=== PATIENT | female | born 1965 | race Caucasian/White ===

== ENCOUNTER 2023-10-11 12:59 | Observation (INO) | payer BC ==
--- NOTE | 2023-10-11 13:09 | ED ---
Upper Extremity HPI - General Source: patient, RN notes reviewed Mode of arrival: ambulatory Limitations: no limitations <Mirela Rondon - Last Filed: 10/11/23 13:08> <Willem Starr - Last Filed: 10/11/23 15:06> - General Stated Complaint: L Finger Infection Time Seen by Provider: 10/11/23 13:08 - History of Present Illness Initial Comments: Quick note: 57-year-old female presenting to the ER with a chief complaint of left second digit infection. Patient sent by urgent care. Patient reports she was scratched by a cat yesterday. Woke up this morning with an extremely tender and swollen digit. Reports paresthesias to finger. Denies any fevers. (Mirela Rondon) This is a 57-year-old female who presents to the emergency department complaining of left index finger infection. Patient states she was bit or scratched by her cat yesterday and the finger continues to get more red painful and swollen. Patient went to an urgent care and they sent her to the emergency department. Patient has any fever chills but she notes that the swelling of the finger is now moved into the palm and of the back of the hand where it was in earlier today. Patient denies any other problems at this time (Willem Starr) - Related Data Allergies Allergy/AdvReac Type Severity Reaction Status Date / Time codeine Allergy Unknown Verified 10/11/23 13:30 Review of Systems ROS Other: All systems not noted in ROS Statement are negative. <Mirela Rondon - Last Filed: 10/11/23 13:08> ROS Other: All systems not noted in ROS Statement are negative. <Willem Starr - Last Filed: 10/11/23 15:06> ROS Statement: Those systems with pertinent positive or pertinent negative responses have been documented in the HPI. General Exam <Mirela Rondon - Last Filed: 10/11/23 13:08> <Willem Starr - Last Filed: 10/11/23 15:06> - General Exam Comments Initial Comments: Visual Physical Exam Vital signs reviewed General: Well-appearing, nontoxic, no acute distress. Head: Normocephalic, atraumatic Eyes: PERRLA, EOMI ENT: Airway patent Chest: Nonlabored breathing Skin: No visual rash, normal skin tone Neuro: Alert and oriented 3 Musculoskeletal: Erythematous and edematous left second finger. (Mirela Rondon) GENERAL Patient is well-developed and well-nourished. Patient is in mild distress. EYES Patient's pupils are equal and round. Extraocular motion is intact SKIN Unremarkable NEURO The patient is alert and oriented -3 PYSCH Patient has normal interpersonal interactions. MUSCULOSKELETAL Index finger on the left is swollen red painful with a opening on the palmar surface above the proximal phalanx. Patient's erythema spreads to the back of the hand and down the palm. (Willem Starr) Course Vital Signs 10/11/23 13:27 Temperature 97.4 F L Pulse Rate 91 Respiratory 18 Rate Blood Pressure 139/95 O2 Sat by Pulse 98 Oximetry Medical Decision Making <Mirela Rondon - Last Filed: 10/11/23 13:08> <Willem Starr - Last Filed: 10/11/23 15:06> - Medical Decision Making I performed the quick note portion of this chart. Electronically signed by Mirela Rondon PA-C (Mirela Rondon) Was pt. sent in by a medical professional or institution (ABHIJIT Carballo, WRINGER MACHINE OPERATOR, urgent care, hospital, or alf...) When possible be specific @ -Patient was sent in from the urgent care Did you speak to anyone other than the patient for history (EMS, parent, family, police, friend...)? What history was obtained from this source @ -No Did you review nursing and triage notes (agree or disagree)? Why? @ -I reviewed and agree with nursing and triage notes Were old charts reviewed (outside hosp., previous admission, EMS record, old EKG, old radiological studies, urgent care reports/EKG's, alf records)? Report findings @ -No old charts were reviewed Differential Diagnosis (chest pain, altered mental status, abdominal pain women, abdominal pain men, vaginal bleeding, weakness, fever, dyspnea, syncope, headache, dizziness, GI bleed, back pain, seizure, CVA, palpatations, mental health, musculoskeletal)? @ -Infected finger, foreign body finger, abscess, this is not an all-inclusive list EKG interpreted by me (3pts min.). @ -As above X-rays interpreted by me (1pt min.). @ -X-ray does not show any fracture or foreign body CT interpreted by me (1pt min.). @ -None done U/S interpreted by me (1pt. min.). @ -None done What testing was considered but not performed or refused? (CT, X-rays, U/S, labs)? Why? @ -None What meds were considered but not given or refused? Why? @ -None Did you discuss the management of the patient with other professionals (professionals i.e. , PA, WRINGER MACHINE OPERATOR, lab, RT, psych nurse, professor of social work, window treatment installer, teacher, safety instruction police officer, director case)? Give summary @ -I spoke with Mr. [facility] hospitalist they want to admit the patient admitted the patient wrote admitting orders Was smoking cessation discussed for >3mins.? @ -No Was critical care preformed (if so, how long)? @ -No Were there social determinants of health that impacted care today? How? (Homelessness, low income, unemployed, alcoholism, drug addiction, transportation, low edu. Level, literacy, decrease access to med. care, shelter, rehab)? @ -No Was there de-escalation of care discussed even if they declined (Discuss DNR or withdrawal of care, Hospice)? DNR status @ -No What co-morbidities impacted this encounter? (DM, HTN, Smoking, COPD, CAD, Cancer, CVA, ARF, Chemo, Hep., AIDS, mental health diagnosis, sleep apnea, morbid obesity)? @ -None Was patient admitted / discharged? Hospital course, mention meds given and route, prescriptions, significant lab abnormalities, going to OR and other pertinent info. @ -Patient was found [facility] Undiagnosed new problem with uncertain prognosis? @ -No Drug Therapy requiring intensive monitoring for toxicity (Heparin, Nitro, Insulin, Cardizem)? @ -No Were any procedures done? @ -No Diagnosis/symptom? @ -Cat bite infection Acute, or Chronic, or Acute on Chronic? @ -Acute Uncomplicated (without systemic symptoms) or Complicated (systemic symptoms)? @ -Complicated Side effects of treatment? @ -No Exacerbation, Progression, or Severe Exacerbation? @ -No Poses a threat to life or bodily function? How? (Chest pain, USA, VT, pneumonia, PE, COPD, DKA, ARF, appy, cholecystitis, CVA, Diverticulitis, Homicidal, Suicidal, threat to staff... and all critical care pts) @ -Yes this could spread and cause severe infection of the hand with dysfunction and/or eventually sepsis (Willem Starr) Disposition <Mirela Rondon - Last Filed: 10/11/23 13:08> Time of Disposition: 15:06 <Willem Starr - Last Filed: 10/11/23 15:06> Clinical Impression: Cat bite of finger, Cellulitis, finger Disposition: ADMITTED IP TO THIS HOSP Referrals: Romain Guadarrama MD [Primary Care Provider] - 1-2 days
--- NOTE | 2023-10-11 14:29 | XR ---
EXAMINATION TYPE: XR finger LT DATE OF EXAM: 10/11/2023 2:13 PM CLINICAL INDICATION:Female, 57 years old with history of cat bite; H COMPARISON: None TECHNIQUE: Frontal, lateral and oblique views of the left index finger were obtained. FINDINGS: Normal alignment of the visualized joints. No acute osseous pathology is identified. Minim al soft tissue edema. No retained foreign bodies identified. IMPRESSION: 1. No acute osseous pathology or radiopaque foreign body. 2. Mild soft tissue edema along the medial finger.
[2023-10-11] MEDS ORDERED: HYDROmorphone 0.5 MG/0.5 ML SYRINGE IVP PRN (15:11)
[2023-10-11] MEDS: HYDROmorphone 0.5 MG/0.5 ML SYRINGE IVP STA (15:42)
[2023-10-11] MEDS: KETOROLAC 15 MG/ML 1 ML VIAL IVP STA (15:44)
[2023-10-11 15:50] LABS: Basophils % (A) 0 %; Eosinophils # (A) 0.2 k/uL (0-0.7); Eosinophils % (A) 2 %; HCT 46.4 % (34.0-46.0); HGB 15.6 gm/dL (11.4-16.0); Lymphocytes # (A) 1.5 k/uL (1.0-4.8); Lymphocytes % (A) 13 %; MCH 34.2 pg (25.0-35.0); MCHC 33.5 g/dL (31.0-37.0); MCV 101.9 fL (80.0-100.0); Mean Platelet Volume 9.6; Monocytes # (A) 0.5 k/uL (0-1.0); Monocytes % (A) 5 %; Neutrophils # (A) 9.3 k/uL (1.3-7.7); Neutrophils % (A) 80 %; Platelet Count 138 k/uL (150-450); RBC 4.55 m/uL (3.80-5.40); RDW 11.7 % (11.5-15.5); WBC 11.7 k/uL (3.8-10.6)
[2023-10-11] MEDS: SODIUM CHLORIDE 0.9% 1,000 ML IV ONE (16:20)
[2023-10-11 16:21] LABS: ALT 23 U/L (4-34); AST 47 U/L (14-36); African American GFR (CKD) >90 (>60 ml/min/1.73 sqM); Albumin 4.1 g/dL (3.5-5.0); Alkaline Phosphatase 72 U/L (38-126); Anion Gap 8 mmol/L; Blood Urea Nitrogen 18 mg/dL (7-17); Calcium 9.9 mg/dL (8.4-10.2); Carbon Dioxide 20 mmol/L (22-30); Chloride 111 mmol/L (98-107); Glucose 93 mg/dL (74-99); Non-African American GFR(CKD) >90 (>60 ml/min/1.73 sqM); Potassium 4.3 mmol/L (3.5-5.1); Sodium 139 mmol/L (137-145); Total Bilirubin 0.7 mg/dL (0.2-1.3); Total Protein 7.2 g/dL (6.3-8.2)
[2023-10-11] MEDS: AMPICILLIN-SULBACTAM 3 GM in SODIUM CHLORIDE 0.9% 100 ML IVPB STA (16:32)
[2023-10-11] MEDS ORDERED: ONDANSETRON 4 MG/2 ML VIAL IVP PRN (17:48)
[2023-10-11] MEDS ORDERED: MELATONIN 3 MG TABLET PO PRN (17:48)
[2023-10-11] MEDS ORDERED: ACETAMINOPHEN TAB 325 MG TAB PO PRN (17:48)
[2023-10-11] MEDS ORDERED: NALOXONE 0.4 MG/ML 1 ML VIAL IV PRN (17:48)
[2023-10-11] MEDS: KETOROLAC 15 MG/ML 1 ML VIAL IVP SCH (18:10)
--- NOTE | 2023-10-11 18:28 | P.HPIM ---
History of Present Illness H&P Date: 10/11/23 57 year old right handed F with PMH of dyslipidemia presents to the ED after a cat bite that started at 10:45AM yesterday. Since then she reports increased pain, redness and swelling in her left second digit that is extending into the palm. She denies any fever, chills, nausea, vomiting, fever, chills, changes in urination or bowel habits. In the ED she underwent extensive evaluation. BP 139/95 HR 91 T97.4F RR 18 98% on RA. CBC WBC 11.7, Hct 46.4, MCV 101.9, Plt 138. CMP Cl 111, bicarb 20, BUN 18, AST 47. Finger XR showed soft tissue swelling. She is admitted for treatment of left hand cellulitis. General: non toxic, no distress, appears at stated age Derm: warm, dry Head: atraumatic, normocephalic, symmetric Eyes: EOMI, no lid lag, anicteric sclera Mouth: no lip lesion, mucus membranes moist Cardiovascular: S1S2 reg, no murmur Lungs: CTA bilateral, no rhonchi, no rales , no accessory muscle use Ext: no gross muscle atrophy, no edema, no contractures, L 2nd digit puncture wound without drainage and fluctuance with erythema extending into the palm, weakened L hand nib assembler due to pain, 2+ radial pulse L hand Neuro: no focal neuro deficits Psych: Alert, oriented, appropriate affect Based on my assessment of this patient, this patient meets a high complexity level of care. Patient has an acute diagnosis of celulitis of the left hand that poses a threat to life or bodily function. Sepsis due to left hand cellulitis: Start Unasyn 3g IV Q6H. Tylenol PRN for fever or pain. Toradol 15 mg IV Q6H + Dilaudid 0.5 mg IV TID PRN for pain. Obtain BCx. NS at 100 cc/hr. Left hand cat bite: [facility] Sx consult. Macrocytosis: Drinks couple glasses of wine weekly. Transaminitis: Likely due to EtOH. Chronic conditions: Dyslipidemia CODE STATUS: FULL CODE DVT Prophylaxis: Lovenox GI Prophylaxis: Designated medical POA if patient is not able to make medical decisions for themselves: I have reviewed the following design sales consultant notes: ED I have reviewed the results of the following tests: As above I have ordered the following tests: As above I have discussed the care of this patient with the following independent historian: I have independently interpreted the following test below: L finger XR. I have discussed the management of this patient with the following physician: Dr. Starr Past Medical History Past Medical History: Hyperlipidemia History of Any Multi-Drug Resistant Organisms: None Reported Past Surgical History: Cardiac Ablation, Orthopedic Surgery Additional Past Surgical History / Comment(s): parathyroid, left knee scope Past Anesthesia/Blood Transfusion Reactions: No Reported Reaction Additional Past Anesthesia/Blood Transfusion Reaction / Comment(s): no hx of blood transfusion Past Psychological History: No Psychological Hx Reported Smoking Status: Light tobacco smoker Past Alcohol Use History: Occasional Past Drug Use History: None Reported Medications and Allergies Home Medications Medication Instructions Recorded Confirmed Type Albuterol Inhaler [Ventolin Hfa 2 puff INHALATION RT-Q6H PRN 10/11/23 10/11/23 History Inhaler] Atorvastatin [Lipitor] 20 mg PO HS 10/11/23 10/11/23 History Ergocalciferol (Vitamin D2) 1,250 mcg PO MO 10/11/23 10/11/23 History [Drisdol (50,000 Iu)] Ezetimibe [Zetia] 10 mg PO HS 10/11/23 10/11/23 History Magnesium 250 mg PO DAILY 10/11/23 10/11/23 History Multivitamins, Thera [Multivitamin 1 tab PO DAILY 10/11/23 10/11/23 History (formulary)] Progesterone, Micronized 200 mg PO HS 10/11/23 10/11/23 History [Prometrium] Tirzepatide [Zepbound] 5 mg SQ TH 10/11/23 10/11/23 History Allergies Allergy/AdvReac Type Severity Reaction Status Date / Time codeine AdvReac numbness Verified 10/11/23 15:53 Physical Exam Vitals: Vital Signs Temp Pulse Resp BP Pulse Ox 10/11/23 16:51 83 16 128/79 97 10/11/23 13:27 97.4 F L 91 18 139/95 98 Intake and Output 10/11/23 10/11/23 10/11/23 06:59 14:59 22:59 Other: # Voids 1 Weight 108.862 kg 108.862 kg Results CBC & Chem 7: 10/11/23 15:46 10/11/23 15:46 Labs: Abnormal Lab Results - Last 24 Hours (Table) 10/11/23 10/11/23 Range/Units 15:46 15:46 WBC 11.7 H (3.8-10.6) k/uL Hct 46.4 H (34.0-46.0) % MCV 101.9 H (80.0-100.0) fL Plt Count 138 L (150-450) k/uL Neutrophils # 9.3 H (1.3-7.7) k/uL Chloride 111 H (98-107) mmol/L Carbon Dioxide 20 L (22-30) mmol/L BUN 18 H (7-17) mg/dL AST 47 H (14-36) U/L Thrombosis Risk Factor Assmnt - Choose All That Apply Each Factor Represents 1 point: Age 41-60 years, Obesity (BMI >25) Other Risk Factors: No Other congenital or acquired thrombophilia - If yes, enter type in comment: No Thrombosis Risk Factor Assessment Total Risk Factor Score: 2 Thrombosis Risk Factor Assessment Level: Low Risk
[2023-10-11] MEDS: AMPICILLIN-SULBACTAM 3 GM in SODIUM CHLORIDE 0.9% 100 ML IVPB SCH (20:04)
[2023-10-11] MEDS: EZETIMIBE 10 MG TAB PO SCH (20:05)
[2023-10-11] MEDS: ATORVASTATIN 20 MG TAB PO SCH (20:05)
[2023-10-11] MEDS: HYDROmorphone 0.5 MG/0.5 ML SYRINGE IVP PRN (20:05)
[2023-10-12] MEDS: ENOXAPARIN 40 MG/0.4 ML SYRINGE SQ SCH (07:54)
[2023-10-12 08:36] LABS: Basophils # (A) 0.03 X 10*3/uL (0.00-0.10); Basophils % (A) 0.4 %; Eosinophils # (A) 0.13 X 10*3/uL (0.04-0.35); Eosinophils % (A) 1.5 %; HCT 40.2 % (37.2-46.3); Lymphocytes # (A) 2.29 X 10*3/uL (0.90-5.00); Lymphocytes % (A) 27.2 %; MCH 35.1 pg (27.0-32.0); MCHC 34.8 g/dL (32.0-37.0); MCV 100.8 FL (80.0-97.0); Mean Platelet Volume 11.6 FL (9.5-12.2); Monocytes % (A) 7.1 %; NRBC Per 100 WBC 0 X 10*3/uL (0.00-0.01); Neutrophils # (A) 5.36 X 10*3/uL (1.80-7.70); Neutrophils % (A) 63.6 %; Platelet Count 119 X 10*3/uL (140-440); RBC 3.99 X 10*6/uL (4.10-5.20); RDW 11.7 % (11.5-14.5); WBC 8.43 X 10*3/uL (4.50-10.00)
[2023-10-12 08:51] LABS: BUN/Creat Ratio 21.88 Ratio (12.00-20.00); Blood Urea Nitrogen 17.5 mg/dL (9.0-27.0); Calcium 9.2 mg/dL (8.7-10.3); Carbon Dioxide 23.7 mmol/L (21.6-31.8); Chloride 110 mmol/L (96-109); Glucose 91 mg/dL (70-110); Potassium 4.5 mmol/L (3.5-5.5); Sodium 141 mmol/L (135-145)
--- NOTE | 2023-10-12 09:58 | P.CNOR ---
History of Present Illness - [facility] Consult date: 10/12/23 Consult reason: joint pain (Cat bite left index finger) History of present illness: this is a 57-year-old female who sustained a cat bite Thursday morning. Soon after she developed redness and swelling to the hand and finger. She presented to the emergency department yesterday and was admitted for IV antibiotics. We are consulted for orthopedic evaluation. the patient has been on IV Unasyn since 3 PM yesterday and she has noticed significant improvement since that time. Past Medical History Past Medical History: Hyperlipidemia History of Any Multi-Drug Resistant Organisms: None Reported Past Surgical History: Cardiac Ablation, Orthopedic Surgery Additional Past Surgical History / Comment(s): parathyroid, left knee scope Past Anesthesia/Blood Transfusion Reactions: No Reported Reaction Additional Past Anesthesia/Blood Transfusion Reaction / Comm: no hx of blood transfusion Past Psychological History: No Psychological Hx Reported Smoking Status: Light tobacco smoker Past Alcohol Use History: Occasional Past Drug Use History: None Reported Medications and Allergies Home Medications Medication Instructions Recorded Confirmed Type Albuterol Inhaler [Ventolin Hfa 2 puff INHALATION RT-Q6H PRN 10/11/23 10/11/23 History Inhaler] Atorvastatin [Lipitor] 20 mg PO HS 10/11/23 10/11/23 History Ergocalciferol (Vitamin D2) 1,250 mcg PO MO 10/11/23 10/11/23 History [Drisdol (50,000 Iu)] Ezetimibe [Zetia] 10 mg PO HS 10/11/23 10/11/23 History Magnesium 250 mg PO DAILY 10/11/23 10/11/23 History Multivitamins, Thera [Multivitamin 1 tab PO DAILY 10/11/23 10/11/23 History (formulary)] Progesterone, Micronized 200 mg PO HS 10/11/23 10/11/23 History [Prometrium] Tirzepatide [Zepbound] 5 mg SQ TH 10/11/23 10/11/23 History Allergies Allergy/AdvReac Type Severity Reaction Status Date / Time codeine AdvReac numbness Verified 10/11/23 15:53 Physical Examination this is a 57-year-old female in no acute distress. She is alert and oriented 3. Exam of the left upper extremity reveals mild erythema to the volar aspect of the finger as well as the dorsal aspect extending into the dorsal hand. She has near full extension of the finger. She has difficulty fully flexing the finger. There is minimal tenderness to palpation about the palm of the hand. Neurovascular status the upper extremity is intact. Results x-rays reveal no acute bony abnormality or foreign body. - Labs Labs: Abnormal Lab Results - Last 24 Hours (Table) 10/11/23 10/11/23 10/12/23 Range/Units 15:46 15:46 04:18 WBC 11.7 H (3.8-10.6) k/uL RBC 3.99 L (4.10-5.20) X 10*6/uL Hct 46.4 H (34.0-46.0) % MCV 101.9 H 100.8 H (80.0-100.0) fL MCH 35.1 H (27.0-32.0) pg Plt Count 138 L 119 L (150-450) k/uL Neutrophils # 9.3 H (1.3-7.7) k/uL Chloride 111 H (98-107) mmol/L Carbon Dioxide 20 L (22-30) mmol/L BUN 18 H (7-17) mg/dL BUN/Creatinine Ratio (12.00-20.00) Ratio AST 47 H (14-36) U/L 10/12/23 Range/Units 04:18 WBC (3.8-10.6) k/uL RBC (4.10-5.20) X 10*6/uL Hct (34.0-46.0) % MCV (80.0-100.0) fL MCH (27.0-32.0) pg Plt Count (150-450) k/uL Neutrophils # (1.3-7.7) k/uL Chloride 110 H (98-107) mmol/L Carbon Dioxide (22-30) mmol/L BUN (7-17) mg/dL BUN/Creatinine Ratio 21.88 H (12.00-20.00) Ratio AST (14-36) U/L H & H 10/11/23 10/12/23 Range/Units 15:46 04:18 Hgb 15.6 14.0 (11.4-16.0) gm/dL Hct 46.4 H 40.2 (34.0-46.0) % Result Diagrams: 10/12/23 04:18 10/12/23 04:18 Assessment and Plan (1) Cat bite of finger Current Visit: Yes Status: Acute Code(s): S61.259A - OPEN BITE OF UNSP FINGER WITHOUT DAMAGE TO NAIL, INIT ENCNTR; W55.01XA - BITTEN BY CAT, INITIAL ENCOUNTER SNOMED Code(s): 177341177 (2) Cellulitis, finger Current Visit: Yes Status: Acute Code(s): L03.019 - CELLULITIS OF UNSPECIFIED FINGER SNOMED Code(s): 30232966 Plan: the clinical and x-ray findings are discussed with the patient. Since she has had improvement since yesterday I would continue IV antibiotics and add moist heat to the hand as tolerated. We will reevaluate tomorrow. If she continues to improve we will hold off on surgical intervention.
--- NOTE | 2023-10-12 11:10 | P.PN ---
Subjective Progress Note Date: 10/12/23 57 year old right handed F with PMH of dyslipidemia presents to the ED after a cat bite that started at 10:45AM yesterday. Since then she reports increased pain, redness and swelling in her left second digit that is extending into the palm. She denies any fever, chills, nausea, vomiting, fever, chills, changes in urination or bowel habits. In the ED she underwent extensive evaluation. BP 139/95 HR 91 T97.4F RR 18 98% on RA. CBC WBC 11.7, Hct 46.4, MCV 101.9, Plt 138. CMP Cl 111, bicarb 20, BUN 18, AST 47. Finger XR showed soft tissue swelling. She is admitted for treatment of left hand cellulitis. 10/11 Patient was seen and examined. Reports minimal improvement in left index finger swelling. Pain improved. No numbness. Currently on Unasyn 3g IV Q6H. CBC RBC 3.99, MCV 100.8, Plt 119. BMP Cl 110, BUN/Cr 21.88. Orthopedic Sx recommends continuing antibiotics and re-evaluate tomorrow for possible surgery. General: non toxic, no distress, appears at stated age Derm: warm, dry Head: atraumatic, normocephalic, symmetric Eyes: EOMI, no lid lag, anicteric sclera Mouth: no lip lesion, mucus membranes moist Cardiovascular: good distal perfusion in all 4 extremities Lungs: breathing comfortable, no accessory muscle use Ext: no gross muscle atrophy, no edema, no contractures, L 2nd digit puncture wound without drainage and fluctuance with erythema extending into the palm, weakened L hand handbag designer due to pain, 2+ radial pulse L hand Neuro: no focal neuro deficits Psych: Alert, oriented, appropriate affect Based on my assessment of this patient, this patient meets a high complexity level of care. Patient has an acute diagnosis of celulitis of the left hand that poses a threat to life or bodily function. Sepsis due to left hand cellulitis: Unasyn 3g IV Q6H. Tylenol PRN for fever or pain. Toradol 15 mg IV Q6H + Dilaudid 0.5 mg IV TID PRN for pain. Follow BCx. Left hand cat bite: Orthoped[facility] Sx on board. Macrocytosis: Drinks couple glasses of wine weekly. Transaminitis: Likely due to EtOH. Chronic conditions: Dyslipidemia CODE STATUS: FULL CODE DVT Prophylaxis: Lovenox GI Prophylaxis: Designated medical POA if patient is not able to make medical decisions for themselves: I have reviewed the following senior energy consultant notes: Orthopedic Sx. I have reviewed the results of the following tests: CBC, BMP. I have ordered the following tests: BCx pending. I have discussed the care of this patient with the following independent historian: RN regarding plan of management. I have independently interpreted the following test below: I have discussed the management of this patient with the following physician: Objective - Vital Signs Vital signs: Vital Signs Temp 98.0 F 10/12/23 07:17 Pulse 68 10/12/23 07:17 Resp 18 10/12/23 07:17 BP 137/77 10/12/23 07:17 Pulse Ox 96 10/12/23 07:17 FiO2 Intake & Output 10/11/23 10/12/23 10/12/23 18:59 06:59 18:59 Weight 108.862 kg Other: Voiding Method Toilet Toilet # Voids 1 1 - Labs CBC & Chem 7: 10/12/23 04:18 10/12/23 04:18 Labs: Abnormal Lab Results - Last 24 Hours (Table) 10/11/23 10/11/23 10/12/23 Range/Units 15:46 15:46 04:18 WBC 11.7 H (3.8-10.6) k/uL RBC 3.99 L (4.10-5.20) X 10*6/uL Hct 46.4 H (34.0-46.0) % MCV 101.9 H 100.8 H (80.0-100.0) fL MCH 35.1 H (27.0-32.0) pg Plt Count 138 L 119 L (150-450) k/uL Neutrophils # 9.3 H (1.3-7.7) k/uL Chloride 111 H (98-107) mmol/L Carbon Dioxide 20 L (22-30) mmol/L BUN 18 H (7-17) mg/dL BUN/Creatinine Ratio (12.00-20.00) Ratio AST 47 H (14-36) U/L 10/12/23 Range/Units 04:18 WBC (3.8-10.6) k/uL RBC (4.10-5.20) X 10*6/uL Hct (34.0-46.0) % MCV (80.0-100.0) fL MCH (27.0-32.0) pg Plt Count (150-450) k/uL Neutrophils # (1.3-7.7) k/uL Chloride 110 H (98-107) mmol/L Carbon Dioxide (22-30) mmol/L BUN (7-17) mg/dL BUN/Creatinine Ratio 21.88 H (12.00-20.00) Ratio AST (14-36) U/L
[2023-10-13 07:59] VITALS: BP 123/79; PULSE 47; TEMP 97.7
--- NOTE | 2023-10-13 09:42 | P.PN ---
Subjective Progress Note Date: 10/13/23 Principal diagnosis: Cat bite. Left index finger infection. This is a 57-year-old female whom we are following regarding her left index finger infection secondary to a cat bite. She feels that her swelling and redness have improved. She has no new complaints or concerns today. Vital signs are stable. Objective - Vital Signs Vital signs: Vital Signs Temp 97.7 F 10/13/23 07:07 Pulse 47 L 10/13/23 07:07 Resp 19 10/13/23 07:07 BP 123/79 10/13/23 07:07 Pulse Ox 99 10/13/23 07:07 FiO2 Intake & Output 10/12/23 10/13/23 10/13/23 18:59 06:59 18:59 Other: Voiding Method Toilet # Voids 3 3 - Exam This is a pleasant 57-year-old female in no acute distress. She is alert and oriented x 3. Exam of the left upper extremity reveals improvement in her swelling and erythema to the finger and hand. She is able to fully extend the finger without difficulty. She is still having some difficulty with full flexion of the finger secondary to the swelling. Neurovascular status to the upper extremity is intact. - Labs CBC & Chem 7: 10/12/23 04:18 10/12/23 04:18 Labs: Microbiology - Last 24 Hours (Table) 10/11/23 15:50 Blood Culture - Preliminary Blood Assessment and Plan (1) Cat bite of finger Current Visit: Yes Status: Acute Code(s): S61.259A - OPEN BITE OF UNSP FINGER WITHOUT DAMAGE TO NAIL, INIT ENCNTR; W55.01XA - BITTEN BY CAT, INITIAL ENCOUNTER SNOMED Code(s): 744186967 (2) Cellulitis, finger Current Visit: Yes Status: Acute Code(s): L03.019 - CELLULITIS OF UNSPECIFIED FINGER SNOMED Code(s): 40977312 Plan: the clinical and x-ray findings are discussed with the patient. Since she has had improvement since yesterday I we will allow her to eat today. She may be discharged to home from an orthopedic standpoint. Home antibiotics per infectious disease.
[2023-10-13] MEDS ORDERED: TETANUS-DIPHTHERIA TOX (PF) 0.5 ML VIAL IM ONE (09:46)
--- NOTE | 2023-10-13 11:42 | P.DS ---
Providers Date of admission: 10/11/23 15:07 Expected date of discharge: 10/13/23 Attending physician: Abbey Barrett MD Consults: 10/11/23 18:25 Consult Physician Routine Consulting Provider: Lori Epstein Consult Reason/Comments: left hand cat bite, cellulitis Do you want consulting provider notified?: Yes Primary care physician: Romain Guadarrama Hospital Course: Discharge Diagnosis: Sepsis due to left hand cellulitis Left hand cat bite Alcohol dependence Macrocytosis Transaminitis secondary to alcohol use Dyslipidemia Hospital Course: 57 year old right handed F with PMH of dyslipidemia presents to the ED after a cat bite. In the ED she underwent extensive evaluation. BP 139/95 HR 91 T97.4F RR 18 98% on RA. CBC WBC 11.7, Hct 46.4, MCV 101.9, Plt 138. CMP Cl 111, bicarb 20, BUN 18, AST 47. Finger XR showed soft tissue swelling. Was seen by orthopedic surgery. Patient started on IV Unasyn. Swelling and redness improved. Patient being discharged home on oral Augmentin. Also received tetanus vaccine. Patient seen and examined at bedside. Vital signs reviewed and stable. General: Nontoxic, no distress, appears at stated age Derm: Warm, dry, left second digit erythema and edema improving, puncture wound clean, with scabbing Head: Atraumatic, normocephalic, symmetric Eyes: EOMI, no lid lag, anicteric sclera Mouth: No lip lesion, mucus membranes moist Cardiovascular: S1S2 reg, no murmur Lungs: CTA bilateral, no rhonchi, no rales, no accessory muscle use Abdominal: Soft, nontender to palpation, no guarding, no appreciable organomegaly Ext: No gross muscle atrophy, no edema, no contractures Neuro: CN II-XI grossly intact, no focal neuro deficits Psych: Alert, oriented, appropriate affect A total of 33 minutes of time were spent preparing this complex discharge summary. Patient was discharged on 10/13/2023 at 1137. Patient Condition at Discharge: Stable Plan - Discharge Summary Discharge Rx Participant: Yes New Discharge Prescriptions: New Amoxic-Pot Clav 875-125Mg [Augmentin 875-125] 1 tab PO Q12HR 12 Days #24 tab Continue Ezetimibe [Zetia] 10 mg PO HS Tirzepatide [Zepbound] 5 mg SQ TH Progesterone, Micronized [Prometrium] 200 mg PO HS Magnesium 250 mg PO DAILY Multivitamins, Thera [Multivitamin (formulary)] 1 tab PO DAILY Atorvastatin [Lipitor] 20 mg PO HS Albuterol Inhaler [Ventolin Hfa Inhaler] 2 puff INHALATION RT-Q6H PRN PRN Reason: Shortness Of Breath Ergocalciferol (Vitamin D2) [Drisdol (50,000 Iu)] 1,250 mcg PO MO Discharge Medication List Albuterol Inhaler [Ventolin Hfa Inhaler] 2 puff INHALATION RT-Q6H PRN 10/11/23 [History] Atorvastatin [Lipitor] 20 mg PO HS 10/11/23 [History] Ergocalciferol (Vitamin D2) [Drisdol (50,000 Iu)] 1,250 mcg PO MO 10/11/23 [History] Ezetimibe [Zetia] 10 mg PO HS 10/11/23 [History] Magnesium 250 mg PO DAILY 10/11/23 [History] Multivitamins, Thera [Multivitamin (formulary)] 1 tab PO DAILY 10/11/23 [History] Progesterone, Micronized [Prometrium] 200 mg PO HS 10/11/23 [History] Tirzepatide [Zepbound] 5 mg SQ TH 10/11/23 [History] Amoxic-Pot Clav 875-125Mg [Augmentin 875-125] 1 tab PO Q12HR 12 Days #24 tab 10/13/23 [Rx] Follow up Appointment(s)/Referral(s): Romain Guadarrama MD [Primary Care Provider] - 1-2 days Zane Kauffman MD [STAFF PHYSICIAN] - 1 Week Patient Instructions/Handouts: Animal Bite (DC), Cellulitis (GEN) Activity/Diet/Wound Care/Special Instructions: Please see your PCP and ortho. Discharge Disposition: HOME SELF-CARE
--- NOTE | 2023-10-13 12:02 | CDI ---
Documentation Clarification Form Date: 10/13/2023 11:26:15 AM From: Maura Ortega RN CCDS Phone: [phone] Admit Date: 10/11/2023 03:07:00 PM Patient Name: Sadaf Carrera Visit Number: [id number] Discharge Date: ATTENTION: The Clinical Documentation Specialists (CDI) and [facility] Coding Staff appreciate your assistance in clarifying documentation. Please respond to the clarification below the line at the bottom and electronically sign. The CDI & [facility] Coding staff will review the response and follow-up if needed. Please note: Queries are made part of the Legal Health Record. If you have any questions, please contact the author of this message via ITS. Dr. Andres Sepsis is documented 10/10 & 10/11, H&P and Medicine note which may lack sufficient clinical evidence/support in the medical record. Additional clarification is requested. History/Risk Factors: 57-year-old female presents to the ED with increased pain, redness in her left second digit that is extending into the palm. Patient denies any fever, chills, nausea, vomiting, chills or changes in urination or bowel habits. Medical history: HLD and light tobacco smoker, 10/10 H&P. Clinical Indicators: VSS, 10/10: B/P 139/95; HR 91; Temp 97.4F; RR 18; SpO2 98% room air LABS, 10/10: Wbc 11.7 Xray left finger, 10/10: Mild soft tissue edema along the medial finger Orthopedic consult, 10/11: Leah bite finger, Cellulitis Treatment: 10/10 Ampicillin 3gm IVPB x 1; 10/10 Ampicillin 3gm IVPB Q6H; 10/10 10/10 0.9NS 100cchr After work up and study, please clarify which diagnosis is most appropriate? [ ] Sepsis ruled out [ ] Sepsis treated prophylactically [ ] Sepsis is a valid diagnosis as evidence by the following: (Please add rationale): [ ] Other, please specify [x ] Unable to determine SIRS Criteria: 2 or more of the following may indicate SIRS Temperature < 96.8F (36C) or > 101.0F (38.3C) Heart Rate > 90 bpm Respiratory Rate > 20 breaths/min or PaCO2 < 32 mmHg White Blood Cell Count > 12,000 or < 4,000 cells/mm3 or > 10% bands (Template Last Reviewed: June 2023) MTDD
[2023-10-13] MEDS: DIPH,PERTUS(ACELL)TETVAC-LF 0.5 ML VIAL IM ONE (12:15)
[2023-10-13 13:55] VITALS: RESP 16
--- NOTE | 2023-10-27 07:46 | CDI ---
Documentation Clarification Form Date: 10/13/2023 11:26:00 AM From: Maura Ortega RN CCDS Phone: [phone] Admit Date: 10/11/2023 03:07:00 PM Patient Name: Sadaf Carrera Visit Number: [id number] Discharge Date: 10/13/2023 01:22:00 PM ATTENTION: The Clinical Documentation Specialists (CDI) and [facility] Coding Staff appreciate your assistance in clarifying documentation. Please respond to the clarification below the line at the bottom and electronically sign. The CDI & [facility] Coding staff will review the response and follow-up if needed. Please note: Queries are made part of the Legal Health Record. If you have any questions, please contact the author of this message via ITS. Dr. Jc Andres Sepsis is documented 10/10 & 10/11, H&P and Medicine note which may lack sufficient clinical evidence/support in the medical record. Additional clarification is requested. History/Risk Factors: 57-year-old female presents to the ED with increased pain, redness in her left second digit that is extending into the palm. Patient denies any fever, chills, nausea, vomiting, chills or changes in urination or bowel habits. Medical history: HLD and light tobacco smoker, 10/10 H&P. Clinical Indicators: VSS, 10/10: B/P 139/95; HR 91; Temp 97.4F; RR 18; SpO2 98% room air LABS, 10/10: Wbc 11.7 Xray left finger, 10/10: Mild soft tissue edema along the medial finger Orthopedic consult, 10/11: Leah bite finger, Cellulitis Treatment: 10/10 Ampicillin 3gm IVPB x 1; 10/10 Ampicillin 3gm IVPB Q6H; 10/10 10/10 0.9NS 100cchr After work up and study, please clarify which diagnosis is most appropriate? [ x ] Sepsis ruled out [ ] Sepsis treated prophylactically [ ] Sepsis is a valid diagnosis as evidence by the following: (Please add rationale): [ ] Other, please specify [ ] Unable to determine SIRS Criteria: 2 or more of the following may indicate SIRS Temperature < 96.8F (36C) or > 101.0F (38.3C) Heart Rate > 90 bpm Respiratory Rate > 20 breaths/min or PaCO2 < 32 mmHg White Blood Cell Count > 12,000 or < 4,000 cells/mm3 or > 10% bands (Template Last Reviewed: June 2023) MTDD
== END 2023-10-13 13:22 | disposition home or self-care (01) ==
LOC: EC 12:59 → INTOOBSV 15:07 → 4SSUR 15:07 → UNDODISIN 10-13 13:22
PROVIDERS: ADMIT Family Medicine; ATTEND Family Medicine
DX: L03.114 Cellulitis of left upper limb (principal); S61.251A Open bite of left index finger without damage to nail, initial encounter; W55.01XA Bitten by cat, initial encounter; E78.5 Hyperlipidemia, unspecified; R74.01 Elevation of levels of liver transaminase levels; F10.20 Alcohol dependence, uncomplicated; D75.89 Other specified diseases of blood and blood-forming organs; E66.9 Obesity, unspecified; Z68.35 Body mass index [BMI] 35.0-35.9, adult; Z79.84 Long term (current) use of oral hypoglycemic drugs; Z79.890 Hormone replacement therapy; Z79.60 Long term (current) use of unspecified immunomodulators and immunosuppressants; Z79.899 Other long term (current) drug therapy; Z88.5 Allergy status to narcotic agent; Z23 Encounter for immunization
CPT/HCPCS: 96376 ×3; 96361 ×2; 96366 ×3; 96372 ×2; 96365; 96375; 99285; 80053; 80048; 85025 ×2; 87040; 73140; 90715; G0378 ×3; J1650 ×2; J0295 ×3; J1885 ×3; J1170